=== PATIENT | female | born 1995 | race Caucasian/White ===

== ENCOUNTER → 2018-08-30 | Outpatient (CLI) | payer OTHER ==
--- NOTE | 2018-08-30 15:49 | RADIOLOGY IMAGING REPORT ---
[place] [facility] [place] Heena Cook : 1995 MR: [id number] V: [id number] EXAM DATE: ORDERING PHYSICIAN: ADRIENNE SEAMAN TECHNOLOGIST: Location: [facility] - [place], [place] Patient: Heena Cook : 1995 Visit/Account:[id number] Date of Sevice: 08/30/2018 CHEST PA LAT Additional pertinent History: Positive TB test COMPARISON STUDIES: 02/21/2016 FINDINGS: Support lines and catheters: None Lungs and Pleura: Lung martin well expanded with no infiltrates or consolidations. No parenchymal ma ss lesions are seen. There are no effusions Heart and vasculature: Negative. Cathy and Mediastinum: Negative. Bones and Chest wall: Negative. Upper Abdomen: Negative. IMPRESSION: 1. Negative chest for acute cardiopulmonary disease. No interval change in appearance chest when co mpared to previous examination. Report Dictated By: Gage Mazariegos MD at 08/30/2018 3:43 PM Report E-Signed By: Gage Mazariegos MD at 08/30/2018 3:45 PM [id number]
== END ==
LOC: RAD 15:26
PROVIDERS: ATTEND Nurse Practitioner Family
DX: R76.12 Nonspecific reaction to cell mediated immunity measurement of gamma interferon antigen response without active tuberculosis (principal)
CPT/HCPCS: 71046